=== PATIENT | male | born 1955 | race Caucasian/White ===

== ENCOUNTER → 2020-03-29 | Outpatient (CLI) | payer OTHER ==
[~2020-03-29] MED LIST: CIPRO500 MG PO; FLOMAX0.4 MG PO; HYDROCODONE-AP1 EAC6 PO; HYOSCYAMINE0.125 M1 PO; NORCO 5-325 TA1 EACH PO; ONDANSETRON HCL4 M2 PO; PERCOCET 5-3251 EACH PO; TAMSULOSIN HCL0.4 MG PO
== END ==
LOC: SJCVC 09:11
PROVIDERS: ATTEND Internal Medicine
DX: R07.9 Chest pain, unspecified (principal); R06.00 Dyspnea, unspecified; E78.5 Hyperlipidemia, unspecified

== ENCOUNTER → 2020-05-03 | Outpatient (CLI) | payer OTHER ==
[~2020-05-03] MED LIST changes: +IMDUR 30 MG TAB30 M1 PO
== END ==
LOC: SJCVCIMAG 07:36
PROVIDERS: ATTEND Internal Medicine
DX: I08.3 Combined rheumatic disorders of mitral, aortic and tricuspid valves (principal); I45.10 Unspecified right bundle-branch block; I49.3 Ventricular premature depolarization; R00.0 Tachycardia, unspecified; E78.5 Hyperlipidemia, unspecified; Z79.899 Other long term (current) drug therapy

== ENCOUNTER → 2020-05-09 | Outpatient (CLI) | payer OTHER | LOC: SJCVC 10:10 | PROVIDERS: ATTEND Internal Medicine | DX: R07.9 Chest pain, unspecified (principal); R06.00 Dyspnea, unspecified; I10 Essential (primary) hypertension; E78.5 Hyperlipidemia, unspecified; Z79.899 Other long term (current) drug therapy ==

== ENCOUNTER → 2020-05-17 | Outpatient (CLI) | payer OTHER ==
[~2020-05-17] VITALS: Ht 165.1 cm; Wt 93.0 kg
[2020-05-17 10:18] VITALS: BP 132/92
[2020-05-17 10:29] LABS: HEMATOCRIT 45.1 % (42.0-52.0); HEMOGLOBIN 15.2 gm/dL (14.0-18.0); MCH 30.1 pg (26.0-34.0); MCHC 33.8 g/dL (28.0-37.0); MCV 89.1 fL (80.0-100.0); RBC 5.06 mil/uL (4.50-6.00); RDW 14.6 % (10.5-14.5); WBC 8.2 thou/uL (4.0-11.0)
[2020-05-17 10:43] LABS: CALCIUM 9.1 mg/dL (8.5-10.1); CREATININE 1.1 mg/dL (0.7-1.3); POTASSIUM 3.6 mmol/L (3.5-5.1)
--- NOTE | 2020-05-17 13:46 | NUR ---
1320-PT AMBULATES FROM ROOM 2 IN CV HOLDING TO BR AT END OF RAMIREZ AND BACK TO ROOM 2. NO COMPLICATIONS TO RIGHT GROIN, NO BLEEDING, NO HEMATOMA FORMATION.PT DENIES TENDERNESS WITH PALPATION TO GROIN.
--- NOTE | 2020-05-17 14:07 | NUR ---
RN ASSISTED PT WITH WALKING IN THE RAMIREZ. VSS. R GROIN C/D/I. NO HEMATOMA NOTED. NO PAIN/CP/SOB/DISTRESS NOTED OR VERBALIZED BY PT. PT TOLERATED WELL. GAIT STEADY. WILL CONTINUE TO MONITOR.
--- NOTE | 2020-05-26 17:10 | CATHLAB ---
[facility] [place] [address] INVASIVE PROCEDURE REPORT Name: YENI SHAH Room #: REG NEIDA Nilda#: [id number] Admission: 05/17/20 Attend Phys: Derrek Acuna Discharge: Date of : 51 Report #: [id number] REPORT FOR: cc: Luciano Rowley James A. DO Lammoglia, Francisco J. MD ~ APPROVED REPORT Study performed: 05/17/2020 10:11:20 Patient Details Patient Status: Out-Patient Room #: The patient is a 65 year-old male Event Personnel Derrek Acuna Chicken And Fish Butcher, Dione Duarte RTR Monitor, Yann Chopra RTR ScrubHussein Sherra RTR Bedspread Seamer, Leah Nesbitt RN RN, Ct Pandey RN funeral home director Performed Art Access - R femoral artery* Left Heart Cath w/or w/o Coronaries [id number] [facility] Hemostasis with Manual pressure 19866 Initial Mod Sed Same Phys/QHP Gr5y [id number] Mod Sed Same Phys/QHP Ea 213074, supervision of conscious sedation Indication Positive stress test, Chest pain Procedure Narrative The Right Groin^ was infiltrated with 1% Lidocaine subcutaneous anesthesia. A PINNACLE 4FR Sheath #[id number] sheath was inserted into the RFA^. Coronary angiography was performed using coronary diagnostic catheters. The right coronary system was accessed and visualized with a JR4 catheter. The left coronary system was accessed and visualized with a JL4 catheter. The left ventricle was accessed and visualized with a PIGTAIL catheter. Hemostasis was obtained with manual pressure following sheath removal without any complications. The patient tolerated the procedure well and there were no complications associated with the procedure. There was no hematoma. Intraoperative Conscious Sedation Sedation start time: 11:41 Case end Time: 12:06 [facility] [place] [address] INVASIVE PROCEDURE REPORT Name: YENI SHAH Room #: REG DENISE Munguia#: [id number] Admission: 05/17/20 Attend Phys: Derrek Turner Discharge: Date of : 51 Report #: [id number] Versed 2 mg Fluoro Time: 2.30 minutes Dose: DAP 4986.10 cGycm2 797 mGy Contrast Type and Amount: Omnipaque 50 ml Coronary Angiography The patient's coronary anatomy is right dominant. Diagnostic Cath Left Main Moderate to large caliber vessel normal origin bifurcates left anterior descending left circumflex is free of high-grade disease LAD Moderate caliber type II vessel which courses in the anterior interventricular sulcus. The course is quite tortuous as it gives rise to several diagonal branches and tapers to a thin string-like vessel at the apex. Diagonal 1 Small caliber vessel coursing on the anterolateral wall free of high-grade disease Diagonal 2 Moderate caliber vessel which splits from the LAD proper and continues on the lateral apical portion of the left ventricle which is tortuous in its course but free of high-grade lesions Circumflex Moderate to large caliber nondominant vessel courses in the AV groove gives rise to a small insignificant first marginal branch. Beyond this a second marginal branch originates which is moderate in size coursing on the lateral aspect of the heart free of high-grade disease but tortuous in its course. The circumflex and continues terminating is a posterior wall branch free of significant lesion OM1 Diminutive insignificant no lesion OM2 Moderate to large caliber lateral marginal vessel free of high-grade disease is a courses towards the apex and a tortuous Right Coronary Large-caliber vessel normal origin coursing in the AV groove giving rise to a small RV marginal branch with then continues on giving rise to a moderate to large caliber posterior descending artery and terminates as a moderate to large caliber posterolateral branch. No significant high-grade lesions are noted in its course. R PDA large caliber vessel coursing the posterior interventricular sulcus towards the apex free of high-grade disease RPLV Large caliber bifurcating vessel without high-grade lesion but tortuous course along the inferolateral wall Left Ventriculography Left Ventriculography was not performed. [facility] [address] [place] [address] INVASIVE PROCEDURE REPORT Name: YENI SHAH [place] Room #: REG CL Nilda#: [id number] Admission: 05/17/20 Attend Phys: Derrek Turner Discharge: Date of : 51 Report #: [id number] Hemodynamics The aortic pressure is 136/86 mmHg with a mean of 106 mmHg. The left ventricular pressure is 138/5 mmHg with a mean of mmHg. The left ventricular end diastolic pressure is 29 mmHg. Conclusion 1. Essentially normal coronary arteries 2. Normal hemodynamics 3. Tortuous vessel suggestive of hypertensive heart disease Recommendations Cardiac Risk Reduction Program Medical Therapy <ELECTRONICALLY SIGNED> By: Derrek Acuna MD 05/26/201709 09 09 Derrek Acuna MD /INF
== END | disposition home or self-care (01) ==
LOC: CATH 09:09
PROVIDERS: ATTEND Internal Medicine
DX: R07.9 Chest pain, unspecified (principal); R94.39 Abnormal result of other cardiovascular function study; I25.10 Atherosclerotic heart disease of native coronary artery without angina pectoris; N40.1 Benign prostatic hyperplasia with lower urinary tract symptoms; I10 Essential (primary) hypertension; E78.5 Hyperlipidemia, unspecified; Z98.890 Other specified postprocedural states; Z79.899 Other long term (current) drug therapy; Z85.828 Personal history of other malignant neoplasm of skin; Z82.49 Family history of ischemic heart disease and other diseases of the circulatory system; Z88.0 Allergy status to penicillin; Z88.8 Allergy status to other drugs, medicaments and biological substances

== ENCOUNTER → 2020-06-14 | Outpatient (CLI) | payer OTHER | LOC: BC 13:46 | PROVIDERS: ATTEND Family Medicine | DX: N62 Hypertrophy of breast (principal); N63.41 Unspecified lump in right breast, subareolar ==

== ENCOUNTER → 2020-08-29 | Outpatient (CLI) | payer OTHER | LOC: RAD 13:39 | PROVIDERS: ATTEND Internal Medicine | DX: R06.00 Dyspnea, unspecified (principal); R06.02 Shortness of breath ==

== ENCOUNTER → 2020-12-13 | Outpatient (CLI) | payer OTHER | LOC: SJCVC 09:16 | PROVIDERS: ATTEND Internal Medicine | DX: I10 Essential (primary) hypertension (principal); E78.5 Hyperlipidemia, unspecified; I25.10 Atherosclerotic heart disease of native coronary artery without angina pectoris; Z88.0 Allergy status to penicillin; Z88.8 Allergy status to other drugs, medicaments and biological substances; Z79.899 Other long term (current) drug therapy; Z82.49 Family history of ischemic heart disease and other diseases of the circulatory system ==

== ENCOUNTER → 2021-06-20 | Outpatient (CLI) | payer OTHER | LOC: SJCVC 09:00 | PROVIDERS: ATTEND Internal Medicine | DX: I10 Essential (primary) hypertension (principal); E78.5 Hyperlipidemia, unspecified; J40 Bronchitis, not specified as acute or chronic; N20.0 Calculus of kidney; Z86.16 Personal history of COVID-19; Z72.89 Other problems related to lifestyle; Z79.899 Other long term (current) drug therapy; Z82.49 Family history of ischemic heart disease and other diseases of the circulatory system; Z88.0 Allergy status to penicillin; Z88.1 Allergy status to other antibiotic agents; Z88.8 Allergy status to other drugs, medicaments and biological substances ==